=== PATIENT | female | born 1990 | race Caucasian/White ===

== ENCOUNTER 2020-07-21 15:46 | Emergency (ER) | payer SELFPAY ==
[~2020-07-21] VITALS: Ht 154.9 cm; Wt 61.0 kg
[2020-07-21] MEDS ORDERED: SODIUM CHLORIDE 0.9% 1,000 ML IV ONE (16:15)
[2020-07-21 16:52] LABS: BASOPHILS % 0.5 % (0.0-2.0); EOSINOPHILS % 0.7 % (0.0-5.0); HEMATOCRIT. 41.3 % (36.0-48.0); LYMPHOCYTES % 24.9 % (20.0-50.0); MEAN CORPUSCULAR HEMOGLOBIN 29.8 pg (28.0-32.0); MEAN CORPUSCULAR VOLUME 87.9 fL (81.0-99.0); MEAN PLATELET VOLUME 8.1 fl (7.4-10.4); MONOCYTES % 8.1 % (2.0-8.0); NEUTROPHILS % 65.8 % (40.0-76.0); PLATELET 367 x1000/uL (130-400); RED CELL DISTRIBUTION WIDTH 13.2 % (11.6-14.6)
[2020-07-21 16:57] LABS: CHLORIDE 106 mEq/L (98-107)
[2020-07-21 17:21] LABS: B-HCG QUANTITATIVE 4880 mIU/mL (<3)
[2020-07-21 18:44] LABS: CLARITY URINE CLEAR (CLEAR); COLOR URINE YELLOW (YELLOW); KETONES URINE NEGATIVE (NEGATIVE); LEUKOCYTE ESTERASE URINE NEGATIVE (NEGATIVE); NITRITE URINE NEGATIVE (NEGATIVE); OCCULT BLOOD URINE NEGATIVE (NEGATIVE); PROTEIN URINE NEGATIVE (NEGATIVE); SPECIFIC GRAVITY URINE 1.021 (1.005-1.030); UROBILINOGEN URINE 0.2 E.U./dL (0.2-1.0)
[2020-07-21 19:25] VITALS: BP 138/82
== END 2020-07-21 19:30 | disposition home or self-care (01) ==
LOC: ER 15:46
DX: O20.0 Threatened abortion (principal); Z3A.01 Less than 8 weeks gestation of pregnancy
CPT/HCPCS: 36415; 76801; 76817; 80053; 81003; 81025; 84702; 85025; 86850; 86900; 86901; 87086; 96360; 99284; J7030

== ENCOUNTER 2024-10-19 20:51 | Emergency (ER) | payer BC, MEDICAID ==
[~2024-10-19] VITALS: Ht 165.1 cm; Wt 62.0 kg
[~2024-10-19 20:51] MED LIST: ACET-2708 MT; HYDR-4001 MT; IBUP-2028 MT
[2024-10-19] MEDS: ACETAMINOPHEN 500MG TABLET PO ONE (21:21)
[2024-10-19] MEDS: METOCLOPRAMIDE HCL 10MG TABLET PO ONE (21:21)
[2024-10-19 21:23] VITALS: O2SAT 99
[2024-10-19 21:33] LABS: BASOPHILS % 0.6 % (0.0-2.0); EOSINOPHILS % 1.1 % (0.0-5.0); HEMATOCRIT. 39.6 % (36.0-48.0); HEMOGLOBIN. 13.2 g/dL (12.0-16.0); LYMPHOCYTES % 23.3 % (20.0-50.0); MEAN PLATELET VOLUME 8.4 fl (7.4-10.4); MONOCYTES % 5.7 % (2.0-8.0); NEUTROPHILS % 69.3 % (40.0-76.0); PLATELET 306 x1000/uL (130-400); RED BLOOD CELL COUNT 4.59 mill/uL (4.2-5.4); RED CELL DISTRIBUTION WIDTH 13.2 % (11.6-14.6)
[2024-10-19 21:45] LABS: HCG SCREEN NEGATIVE
[2024-10-19 21:47] LABS: CREATININE 0.7 mg/dL (0.6-1.0); UREA NITROGEN BLOOD 10 mg/dL (9-23)
[2024-10-19 21:49] LABS: ASPARTATE AMINOTRANSFERASE 15 IU/L (<34); BILIRUBIN DIRECT < 0.1 mg/dL (<=3.0); BILIRUBIN TOTAL 0.3 mg/dL (0.1-1.0); PROTEIN TOTAL 7.2 g/dL (6.0-8.3)
[2024-10-19] MEDS: KETOROLAC 15MG/ML VIAL IM ONE (23:00)
[2024-10-20 00:14] LABS: CLARITY URINE CLEAR (CLEAR); COLOR URINE YELLOW (YELLOW); GLUCOSE URINE NEGATIVE (NEGATIVE); KETONES URINE 1+ (NEGATIVE); LEUKOCYTE ESTERASE URINE NEGATIVE (NEGATIVE); NITRITE URINE NEGATIVE (NEGATIVE); OCCULT BLOOD URINE NEGATIVE (NEGATIVE); PH URINE 7.0 (4.5-8.0); PROTEIN URINE TRACE (NEGATIVE); SPECIFIC GRAVITY URINE 1.033 (1.005-1.030); UROBILINOGEN URINE 1.0 E.U./dL (0.2-1.0)
[2024-10-20 00:27] LABS: BACTERIA URINE TRACE; RBC URINE 0-2 /hpf (0-2); SQUAMOUS EPITHELIAL CELL URINE 3+ /lpf (RARE/1+); WBC URINE 0-2 /hpf (0-2)
[2024-10-20] MEDS ORDERED: NAPR-1176 MT (00:31)
[2024-10-20 00:49] VITALS: BP 104/61; PULSE 70; RESP 12; TEMP 36.8; O2SAT 97
== END 2024-10-20 01:00 | disposition home or self-care (01) ==
LOC: ER 20:55
DX: G43.909 Migraine, unspecified, not intractable, without status migrainosus (principal); R11.2 Nausea with vomiting, unspecified; Z79.899 Other long term (current) drug therapy
CPT/HCPCS: 99285; 80076; 80048; 84703; 83690; 85025; 36415; 96372; 81003; J1885; J8597